=== PATIENT | male | born 1995 | race Hispanic/Latino ===

== ENCOUNTER 2022-04-21 10:24 | Emergency (ER) | payer OTHER ==
[2022-04-21] MEDS ORDERED: Bupivacaine 0.25% 10 ML VIAL ONE (11:10)
[2022-04-21] MEDS ORDERED: Bacitracin 1 PK ONE (13:19)
== END 2022-04-21 13:35 | disposition home or self-care (01) ==
LOC: ERS 10:24
DX: S91.012A Laceration without foreign body, left ankle, initial encounter (principal); W20.8XXA Other cause of strike by thrown, projected or falling object, initial encounter
CPT/HCPCS: 12002; S0020